=== PATIENT | male | born 2000 | race Caucasian/White ===

== ENCOUNTER 2019-04-21 12:23 | Emergency (ER) | payer OTHER ==
[~2019-04-21] VITALS: Ht 188 cm; Wt 86.3 kg
[2019-04-21] MEDS ORDERED: CELE20TA PO (12:39)
[2019-04-21] MEDS ORDERED: ABIL1TAB13 PO (12:39)
[2019-04-21 13:34] LABS: HEMATOCRIT 46.9 % (42.0-52.0); HEMOGLOBIN 15.9 g/dl (13.5-17.5); MEAN CORPUSCULAR HGB CONC 33.9 g/dl (32.0-36.5); MEAN CORPUSCULAR VOLUME 85.4 fl (80.0-96.0); PLATELET COUNT, AUTOMATED 321 10^3/uL (150-450); RED BLOOD COUNT 5.49 10^6/uL (4.30-6.10); WHITE BLOOD COUNT 7.2 10^3/uL (4.0-10.0)
[2019-04-21 13:51] LABS: AMPHETAMINES LEVEL URINE NEGATIVE (NEGATIVE); BARBITURATES URINE NEGATIVE (NEGATIVE); BENZODIAZEPINES URINE NEGATIVE (NEGATIVE); CANNABINOIDS URINE NEGATIVE (NEGATIVE); COCAINE METABOLITE URINE NEGATIVE (NEGATIVE); METHADONE URINE NEGATIVE (NEGATIVE); OPIATES URINE NEGATIVE (NEGATIVE); PHENCYCLIDINE URINE NEGATIVE (NEGATIVE)
[2019-04-21 15:23] LABS: ALBUMIN 4.3 GM/DL (3.2-5.2); ALT/SGPT 29 U/L (12-78); BILIRUBIN,DIRECT 0.2 MG/DL (0.0-0.2); BILIRUBIN,TOTAL 0.8 MG/DL (0.2-1.0); BLOOD UREA NITROGEN 9 MG/DL (7-18); CALCIUM LEVEL 9.5 MG/DL (8.5-10.1); CARBON DIOXIDE LEVEL 30 MEQ/L (21-32); CHLORIDE LEVEL 107 MEQ/L (98-107); CREATININE FOR GFR 1.12 MG/DL (0.70-1.30); GLUCOSE, FASTING 87 MG/DL (70-100); POTASSIUM SERUM 3.9 MEQ/L (3.5-5.1); SALICYLATE LEVEL < 1.7 MG/DL (5.0-30.0); SODIUM LEVEL 141 MEQ/L (136-145); TOTAL PROTEIN 7.4 GM/DL (6.4-8.2)
[2019-04-21 15:24] LABS: ACETAMINOPHEN LEVEL < 2.0 UG/ML (10.0-30.0); ETHYL ALCOHOL (ETHANOL) < 0.003 % (0.000-0.010)
[2019-04-21 16:18] VITALS: BP 167/92
--- NOTE | 2019-04-21 17:07 | ED PDOC ---
Provider Note Phone consultation undertaken with [facility] staff, the patient had been brought in by [facility] after reportedly stating that he had chronic passive suicidal thoughts with no intention to act on it or plan. The patient was brought in for further evaluation out of an abundance of caution. The patient was assessed in the emergency room collateral information is called, namely his who described that the patient has a good relationship with her and that she was quite surprised about him being brought in, as she is noted he is been doing quite well as an outpatient she reports it she finds no concerning change from his baseline level of behavior. The patient reports that he's been diagnosed with borderline personality disorder and that he wishes to have therapy. After discussion with the PSA and review of the chart it is clear that the patient does not meet involuntary criteria as she is not demonstrated a significant change from his baseline risk factors of passive chronic suicidal ideation, collateral information confirms that he has not departed significantly from his regular behaviors and thus it cannot be ethically justifiable to claim that he is in imminent risk to himself more than he is at his level baseline behaviors, he is not homicidal by report either thus does not meet full involuntary criteria. He declined voluntary investments be discharged in good timmy, as there is a paucity of information that can be used to justify any potential imminent risk by the information given to this provider ROBIN GRANADOS DO Apr 21, 2019 17:07
== END 2019-04-21 16:22 | disposition home or self-care (01) ==
LOC: M ED 12:23 → EDBD 12:23 → M ED 16:22
DX: F32.9 Major depressive disorder, single episode, unspecified (principal); F41.9 Anxiety disorder, unspecified; Z79.899 Other long term (current) drug therapy
CPT/HCPCS: 36415; 80048; 80076; 80307; 84443; 85027; 99284; G0480

== ENCOUNTER 2019-06-14 17:45 | Emergency (ER) | payer OTHER ==
[~2019-06-14] VITALS: Ht 188 cm; Wt 86.4 kg
[2019-06-14 17:45] VITALS: BP 142/76
[~2019-06-14 17:45] MED LIST: ABIL1TAB13 PO; CELE20TA PO
--- NOTE | 2019-06-14 18:19 | REP ---
Left foot series: Four views. History: Pain in the left foot. Findings: Four views of the left foot demonstrate overall normal mineralization. Bones, joints, and soft tissues are radiographically unremarkable. No fracture or subluxation is seen. Impression: Negative radiographs of the left foot. Electronically Signed by Almas Olivares MD 06/14/2019 06:10 P
[2019-06-14] MEDS ORDERED: IBUP80TA PO (18:43)
== END 2019-06-14 18:53 | disposition home or self-care (01) ==
LOC: M ED 17:45
DX: M70.872 Other soft tissue disorders related to use, overuse and pressure, left ankle and foot (principal); F41.9 Anxiety disorder, unspecified; F32.9 Major depressive disorder, single episode, unspecified